=== PATIENT | female | born 1995 | race Two or more races ===

== ENCOUNTER → 2024-02-10 | Outpatient (CLI) | payer BC, MEDICAID, SELFPAY ==
[2024-02-10 13:26] LABS: Collection Type, Urine Clean Catch
[2024-02-10 13:48] LABS: Bilirubin,Urine Negative (Negative); Blood,Urine Negative (Negative); Clarity,Urine Clear (Clear/Hazy); Color,Urine Colorless (Lt Yel-Yel); Glucose, Urine Negative (Negative); Ketones,Urine Negative (Negative); Leukocyte Esterase,Urine Negative (Negative); Nitrite,Urine Negative (Negative); Protein,Urine Negative (Neg - Trace); RBC,Urine 2 /hpf (0-3); Specific Gravity,Urine 1.005 (1.001-1.035); Squamous Epithelial Cell,Urine 2 /hpf (0-5); Urobilinogen,Urine Negative mg/dL (0.0-1.0); WBC,Urine 1 /hpf (0-5)
[2024-02-10 13:54] LABS: Basophils % (Auto) 0 % (0-2.5); Eosinophils # (Auto) 0.1 Thou/mm3 (0.0-0.5); Eosinophils % (Auto) 1 % (0-10); Hematocrit 35.1 % (36.0-46.0); Hemoglobin 11.3 g/dL (12.0-16.0); Immature Granulocytes % (Auto) 1 % (0-0); Immature Granulocytes Auto 0.05 Thou/mm3 (0.00-0.00); Lymphocytes # (Auto) 4.4 Thou/mm3 (1.0-4.8); Lymphocytes % (Auto) 46 % (10-50); Mean Corpuscular HGB Conc 32.2 g/dl (31.0-37.0); Mean Corpuscular Hemoglobin 26.6 pg (25.0-35.0); Mean Corpuscular Volume 83 fL (80-100); Monocytes # (Auto) 0.6 Thou/mm3 (0.0-0.8); Monocytes % (Auto) 6 % (0-12); Neutrophils # (Auto) 4.4 Thou/mm3 (1.8-7.7); Neutrophils % (Auto) 47 % (37-80); Nucleated Red Blood Cell % 0 /100 WBC (0); Platelet Count 320 Thou/mm3 (140-440); RDW Standard Deviation 40.8 fL (36.4-46.3); Red Blood Count 4.25 Miln/mm3 (4.00-5.20); White Blood Count 9.4 Thou/mm3 (3.6-11.0)
[2024-02-10 14:07] LABS: Vitamin B12 414 pg/mL (211-911); Vitamin D 25 Hydroxy Total 17.8 ng/mL (7.3-40.2)
[2024-02-10 14:09] LABS: Ferritin 3 ng/mL (7.3-270.7)
[2024-02-10 14:22] LABS: Alanine Aminotransferase 20 U/L (10-49); Albumin, Serum 4.7 gm/dL (3.5-5.0); Albumin/Globulin Ratio 1.6 (1.2-2.2); Alkaline Phosphatase 79 U/L (46-116); Anion Gap 4 (7-16); Aspartate Amino Transferase 18 U/L (0-34); BUN/Creatinine Ratio 17 Ratio (12-20); Bilirubin,Total 0.4 mg/dL (0.3-1.2); Blood Urea Nitrogen 15 mg/dL (9-23); Calcium 9.7 mg/dL (8.3-10.6); Calcium (Corrected) 9.7 mg/dL (8.5-10.1); Carbon Dioxide 25.6 mMol/L (20.0-31.0); Chloride 104 mMol/L (98-107); Cholesterol 216 mg/dL (132-200); Creatinine (Component) 0.9 mg/dL (0.6-1.3); Globulin 2.9 gm/dL (2.3-3.5); Glucose 84 mg/dL (74-106); HDL Cholesterol 43 mg/dL (40-60); LDL Cholesterol,Calculated 128 mg/dL (0-130); Osmolality,Calculated 268 (275-295); Potassium 4.1 mMol/L (3.4-5.1); Sodium 134 mMol/L (136-145); Thyroid Stimulating Hormone 2.82 uIU/mL (0.55-4.78); Total Protein 7.6 gm/dL (5.7-8.2); Triglycerides 227 mg/dL (30-150); eGFR > 60 See Note
[2024-02-10 14:23] LABS: Glucose Estimated Average 114 mg/dL (80-131); Hemoglobin A1C 5.6 % Hgb (4.8-6.0)
== END | disposition home or self-care (01) ==
LOC: COPL 12:03
PROVIDERS: PCP Internal Medicine; Referring Provider Internal Medicine; Visit Provider Internal Medicine
DX: Z00.00 Encounter for general adult medical examination without abnormal findings (principal)
CPT/HCPCS: 36415; 80053; 80061; 81001; 82306; 82607; 82728; 83036; 84443; 84550; 85025

== ENCOUNTER 2024-05-20 11:39 | Emergency (ER) | payer BC, MEDICAID, SELFPAY ==
[2024-05-20 11:40] VITALS: BMI 33.6
[2024-05-20 13:09] VITALS: BP 143/89; PULSE 92; RESP 16; TEMP 37.1; O2SAT 100
--- NOTE | 2024-05-20 13:17 | XR_ITS ---
Examination: Transvaginal ultrasound of the pelvis, complete Technique: Transvaginal sonographic images pelvis performed using kruger scale imaging Exam date and time: May 20, 2024 1350 hours INDICATIONS: Pelvic pain and vaginal bleeding beginning 3 weeks ago FINDINGS: Uterus 8.3 x 4.7 x 5.4 cm Endometrial stripe 10 mm No uterine mass or intrauterine gestation Right ovary 3.5 cm arterial flow small follicles Left ovary 2.9 cm arterial flow small follicles IMPRESSION: Negative examination.
--- NOTE | 2024-05-20 13:28 | PD.EDRME ---
Rapid Medical Screening Exam E Arrival date/time: 05/20/24 11:39 This is a 29-year-old female presents to the emergency department with complaints of intermittent vaginal bleeding for 3 weeks. She reports she has had her period for 3 weeks prompting her ED visit today. She is currently on control has been taking daily. Denies any dysuria hematuria no pelvic pain. Chief Complaint: Vaginal Bleeding Time Seen by Provider: 05/20/24 13:10 Vital signs: Vital Signs Temperature 98.8 F 05/20/24 13:09 Pulse Rate 92 05/20/24 13:09 Respiratory Rate 16 05/20/24 13:09 Blood Pressure 143/89 H 05/20/24 13:09 Pulse Oximetry (%) 100 05/20/24 13:09 Oxygen Delivery Method Room Air 05/20/24 13:09
[2024-05-20 14:57] LABS: Bilirubin,Urine Negative (Negative); Blood,Urine 3+ (Negative); Clarity,Urine Turbid (Clear/Hazy); Collection Type, Urine Clean Catch; Color,Urine Lt-Brown (Lt Yel-Yel); Glucose, Urine Negative (Negative); Ketones,Urine Negative (Negative); Leukocyte Esterase,Urine Negative (Negative); Nitrite,Urine Negative (Negative); Protein,Urine 1+ (Neg - Trace); RBC,Urine 754 /hpf (0-3); Specific Gravity,Urine 1.009 (1.001-1.035); Squamous Epithelial Cell,Urine 1 /hpf (0-5); Urobilinogen,Urine Negative mg/dL (0.0-1.0); WBC,Urine 0 /hpf (0-5)
[2024-05-20 15:37] LABS: Basophils % (Auto) 0 % (0-2.5); Eosinophils % (Auto) 0 % (0-10); Hematocrit 33.6 % (36.0-46.0); Hemoglobin 11.4 g/dL (12.0-16.0); Immature Granulocytes % (Auto) 1 % (0-0); Immature Granulocytes Auto 0.07 Thou/mm3 (0.00-0.00); Lymphocytes # (Auto) 4.9 Thou/mm3 (1.0-4.8); Lymphocytes % (Auto) 44 % (10-50); Mean Corpuscular HGB Conc 33.9 g/dl (31.0-37.0); Mean Corpuscular Hemoglobin 27.8 pg (25.0-35.0); Mean Corpuscular Volume 82 fL (80-100); Monocytes # (Auto) 0.7 Thou/mm3 (0.0-0.8); Monocytes % (Auto) 6 % (0-12); Neutrophils # (Auto) 5.5 Thou/mm3 (1.8-7.7); Neutrophils % (Auto) 49 % (37-80); Nucleated Red Blood Cell % 0 /100 WBC (0); Platelet Count 268 Thou/mm3 (140-440); RDW Standard Deviation 47.3 fL (36.4-46.3); White Blood Count 11.2 Thou/mm3 (3.6-11.0)
[2024-05-20 15:46] LABS: HCG,Qualitative Serum Negative
[2024-05-20 15:53] LABS: Alanine Aminotransferase 14 U/L (10-49); Albumin, Serum 4.3 gm/dL (3.5-5.0); Albumin/Globulin Ratio 1.3 (1.2-2.2); Alkaline Phosphatase 53 U/L (46-116); Anion Gap 10 (7-16); Aspartate Amino Transferase 14 U/L (0-34); BUN/Creatinine Ratio 10 Ratio (12-20); Bilirubin,Total 0.3 mg/dL (0.3-1.2); Blood Urea Nitrogen 9 mg/dL (9-23); Calcium 9.3 mg/dL (8.3-10.6); Calcium (Corrected) 9.3 mg/dL (8.5-10.1); Carbon Dioxide 24.5 mMol/L (20.0-31.0); Chloride 104 mMol/L (98-107); Creatinine (Component) 0.9 mg/dL (0.6-1.3); Estimated Creatinine Clearance 94.2 mL/min (>60); Globulin 3.3 gm/dL (2.3-3.5); Glucose 90 mg/dL (74-106); Osmolality,Calculated 274 (275-295); Potassium 3.6 mMol/L (3.4-5.1); Sodium 138 mMol/L (136-145); Total Protein 7.6 gm/dL (5.7-8.2); eGFR > 60 See Note
--- NOTE | 2024-05-20 16:44 | EDNOTE_ITS ---
ED OB Contraction Preg RMI/HPI General Chief complaint: Vaginal Bleeding Stated complaint: Vaginal Bleed x 3 weeks Time Seen by Provider: 05/20/24 13:10 Source: patient Arrival date/time: 05/20/24 11:39 Limitations: no limitations RME / HPI RME / HPI Narrative: 05/20/24 11:39 This is a 29-year-old female presents to the emergency department with complaints of intermittent vaginal bleeding for 3 weeks. She reports she has had her period for 3 weeks prompting her ED visit today. She is currently on control has been taking daily. Denies any dysuria hematuria no pelvic pain. Related Data Previous Rx's ?Medication ?Instructions ?Recorded prenat.vits,zeyad,exn-gtiu-acodv 1 tab PO QDAY #30 tabs 12/03/17 amoxicillin 875 mg-potassium 1 tab PO Q12H #10 tabs clavulanate 125 mg tablet Allergies Allergy/AdvReac Type Severity Reaction Status Date / Time No Known Drug Allergies Allergy Unknown Verified 12/04/17 11:59 Review of Systems Review of Systems Systems Reviewed: All systems reviewed, normal except as documented Narrative Review of Systems: Gen: No fever, no chills, no weight loss EYES: No discharge, no visual changes, no pain HEENT: No ear pain, no congestion, no sore throat PULM: No shortness of breath, no cough, no congestion CV: No chest pain, no dyspnea on exertion, no palpitations GI: No nausea, no vomiting, no diarrhea, no pain, no constipation : No frequency, no urgency,? no dysuria vaginal bleeding Musc/skel: No joint pain, no back pain Skin: No rash? Psyc: No hallucinations, no depression Heme/Lymph: No easy bleeding or bruising tendencies Neuro: No weakness, no headache ED Exam General Limitations: Present no limitations General appearance: Present alert and in no apparent distress Head Head exam: Present atraumatic Eye Eye exam: Present normal appearance, PERRL and EOMI ENT ENT exam: Present normal exam, normal oropharynx and mucous membranes moist Neck Neck exam: Present normal inspection, full ROM and trachea midline Chest Chest inspection: Present normal inspection and symmetric chest wall rise Respiratory Respiratory exam: Present normal lung sounds bilaterally Cardiovascular Cardiovascular exam: Present regular rate, normal rhythm and normal heart sounds Abdominal Exam Abdominal exam: Present soft and normal bowel sounds Extremities Exam Extremities exam: Present normal inspection and full ROM Back Exam Back exam: Present normal inspection and full ROM Neurological Exam Neurological exam: Present alert, oriented X3 and CN II-XII intact Psychiatric Psychiatric exam: Present normal affect and normal mood Skin Skin exam: Present warm, dry, intact and normal color Course Quality Measures none Orders Category Date Time Status US transvaginal Stat Exams 05/20/24 13:17 Completed CBC Stat Lab 05/20/24 15:17 Completed Comprehensive Metabolic Panel Stat Lab 05/20/24 15:17 Completed HCG,Qualitative Serum Stat Lab 05/20/24 15:17 Completed Urinalysis Stat Lab 05/20/24 13:17 Completed Urine Culture Stat Lab 05/20/24 14:40 Completed Vital Signs Vital signs: Vital Signs Temperature 98.8 F 05/20/24 13:09 Pulse Rate 92 05/20/24 13:09 Respiratory Rate 16 05/20/24 13:09 Blood Pressure 143/89 H 05/20/24 13:09 Pulse Oximetry (%) 100 05/20/24 13:09 Oxygen Delivery Method Room Air 05/20/24 13:09 Vaginal Bleeding MDM Narrative MDM Narrative: 29-year-old female presents to the emergency department with concerns of dysfunctional uterine bleeding. Patient reports this has been ongoing chronic issue. Has recently been started on a lower dose contraceptive. Has not seen any changes. Patient's labs reviewed and imaging reviewed reassuring. I did advise patient to keep her appointment with her [facility] might need an increase in dose of contraceptive patient agrees to follow-up with with her PCP or [facility] for further evaluation strict ER precautions given. Patient data External records reviewed:: [facility] previous records Clinical information provided by:: patient Social determinants that could affect healthcare access:: none Patient has the following chronic illnesses:: no How is presenting disease/condition affected by chronic disease/condition?: no chronic disease Evaluation data The following diagnostics were reviewed and interpreted by me:: lab results and radiology exam(s) Lab and/or radiology exams considered but not ordered:: no Interpretation Summary: Examination: Transvaginal ultrasound of the pelvis, complete Technique: Transvaginal sonographic images pelvis performed using kruger scale imaging Exam date and time: May 20, 2024 1350 hours INDICATIONS: Pelvic pain and vaginal bleeding beginning 3 weeks ago FINDINGS: Uterus 8.3 x 4.7 x 5.4 cm Endometrial stripe 10 mm No uterine mass or intrauterine gestation Right ovary 3.5 cm arterial flow small follicles Left ovary 2.9 cm arterial flow small follicles IMPRESSION: Negative examination. Medications / Prescriptions Medications or Prescriptions considered but not ordered:: no Medication administrations:: no Consultations Consultation(s) initiated? (list below): No Diagnosis Vaginal Bleeding Differential Diagnosis: missed , threatened , dysfunctional uterine bleeding, menometrorrhagia and vaginal bleeding Most likely diagnosis given after review of the tests above:: Dysfunctional uterine bleeding Admission Indicated Admission indicated?: not indicated Admission Request Was there a request for admission?: No Disposition Plan Disposition Plan: Discharge Discharge Attestation Discharge Attestation: The patient and all family members were given an opportunity to ask questions and understood the discharge instructions. Discharge instructions specifically effects, indications for sooner follow up or return to the emergency department, and the expected course of current diagnosis. Patient condition: Stable Discharge Plan Plan Patient Disposition: HOME (Self Care) Prescriptions/Referrals Prescriptions/Med Rec: No Action prenat.vits,zeyad,vmc-guxl-iznwt tablet 1 tab PO QDAY Qty: 30 11RF amoxicillin-pot clavulanate 875-125 mg tablet 1 tab PO Q12H Qty: 10 0RF Referrals: No Primary/Family,Physician [Primary Care Provider] - In 1 week Problem List Clinical Impression: Dysfunctional uterine bleeding Patient/Caregiver Discharge Instructions Discharge Activity: activity as tolerated Education Materials: Understanding Uterine Bleeding Additional Instructions: Please follow-up with your [facility] Continue take your control Return to the emergency department is any worsening symptoms change in condition. Print Language: Sinhala Stand Alone Forms: [facility] Award Info., Patient Portal Info Letter PA/JER Supervising Physician FRANC/JER Supervising Physician: Dr Sanchez
== END 2024-05-20 17:43 | disposition home or self-care (01) ==
PROVIDERS: Nurse Practitioner Primary Care; Emergency Provider Emergency Medicine
DX: N93.8 Other specified abnormal uterine and vaginal bleeding (principal); Z79.3 Long term (current) use of hormonal contraceptives
CPT/HCPCS: 36415; 76830; 80053; 81001; 84703; 85025; 87086; 99284